=== PATIENT | male | born 1970 | race Caucasian/White ===

== ENCOUNTER 2024-02-28 12:40 | Day surgery (SDC) | payer MEDICAID, SELFPAY ==
[2024-02-27 13:08] VITALS: BMI 29.5
[2024-02-28] VITALS (12 sets, daily range): BP systolic 127–168; BP diastolic 77–113; PULSE 61–87; RESP 12–20; TEMP 36.1–37.1; O2SAT 95–99; BMI 31.1
[2024-02-28] MEDS: fentaNYL CIT INJ 50 mCg/ML AMP 2ML (ASD USE ONLY) IV (14:37)
[2024-02-28] MEDS: MIDAZOLAM INJ 1 MG/ML VIAL 2 ML (ASD USE ONLY) 2 MG IV (14:45)
[2024-02-28] MEDS: DiphenhydrAMINE INJ 50 MG/ML VIAL 25 MG IV (14:45)
--- NOTE | 2024-02-28 15:03 | SUR.PHASEII ---
PATIENT ARRIVED INTO RECOVERY WITH NO ACUTE DISTRESS NOTED, V/S STABLE, PATIENT PASSING FLATUS, REPORT RECEIVED FROM DEYSI GOOD.
== END 2024-02-28 15:55 | disposition home or self-care (01) ==
PROVIDERS: PCP Obstetrics & Gynecology; Referring Provider Surgery; Visit Provider Surgery
PROC: 0DBE8ZX Excision of Large Intestine, Via Natural or Artificial Opening Endoscopic, Diagnostic (ICD-10-PCS; CPT 45380; principal; 2024-02-28 14:30)
DX: Z12.11 Encounter for screening for malignant neoplasm of colon (principal)
CPT/HCPCS: 45378; J1200; J2250; J3010